=== PATIENT | female | born 1985 | race Caucasian/White ===

== ENCOUNTER 2024-12-26 15:11 | Outpatient (AMB) | payer OTHER, SELFPAY ==
[2024-12-26 15:15] VITALS: BP 132/82; PULSE 95; O2SAT 96; BMI 41.5
--- NOTE | 2024-12-26 15:15 | HO.NEPHOV_ITS ---
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 She was diagnosed with hypertension about a year ago. She was initially on amlodipine 5 mg. For the past 2 months dose has been increased to 10 mg. Systolic blood pressure is still in the mid 130s. She has been referred for further evaluation of hypertension. She has gained about 50 lb in the last 2 years. She was worked up for seizure-like activity. She was later discharged by Neurology. She recently lost her sister and has a stressful situation. She works in the stressful job as well She has had 2 pregnancies without any -induced hypertension [facility] Medical History (Updated 12/26/24 @ 15:59 by Chucho Brantley MD) Adult BMI 40.0-44.9 kg/sq m Cervical adenopathy CRP elevated ETD (eustachian tube dysfunction) Hypertension Severe obesity Family History (Updated 12/26/24 @ 15:17 by MATEUSZ Benítez) Father Hypertension Mother Hypertension Review of Systems Const Denies fever(s) and Denies weight loss Card Denies chest pain Resp Denies cough and Denies hemoptysis GI Denies abdominal pain, Denies diarrhea and Denies nausea Musc Denies back pain Neuro Denies focal weakness Physical Exam Vital Signs: Last Vital Signs Pulse 95 12/26/24 15:15 BP 132/82 12/26/24 15:15 Pulse Ox 96 12/26/24 15:15 Oxygen Delivery Method Room Air 12/26/24 15:15 BMI result Body Mass Index 41.5 Const General: comfortable; No acute distress Orientation/consciousness: patient oriented x3 Eyes General: appearance normal, both eyes and all related structures Visual Velasco: normal visual velasco by confrontation Neck Neck: Yes supple and Yes no JVD Resp Effort & Inspection: normal respiratory effort and respiratory effort not decreased Cardio Palpation: no palpable S3 and no palpable S4 Heart sounds: no rubs GI Inspection: Yes normal to inspection Palpation (GI): Soft to palpation Percussion: Yes normal to percussion Auscultation: normal bowel sounds General: Yes no CVA tenderness Back/Spine/Pelvis Back: no CVA tenderness Skin General skin exam: no petechiae and no purpura Neuro General: patient oriented x3 and no focal motor deficits Extrem General: No clubbing and No edema Results Reviewed Nephrology Results: Hgb 11.8 g/dL (12.0-16.0) L 08/30/19 WBC 7.6 X10*3/uL (4.8-10.8) 08/30/19 Plt Count 269 X10*3/uL (160-400) 08/30/19 Sodium 137 MMOL/L (135-145) 08/08/19 Potassium 4.3 MMOL/L (3.3-5.1) 08/08/19 Chloride 104 MMOL/L (96-108) 08/08/19 BUN 6 MG/DL (9-16) L 08/08/19 Creatinine 0.77 MG/DL (0.5-1.4) 08/08/19 Urine Protein NEG (NEG - TRACE) 08/08/19 Assessment & Plan Assessment & Plan (1) Hypertension: Code(s): I10 - Essential (primary) hypertension Category: Medical Plan Young woman with hypertension in the setting of increased BMI. She has secondary hypertension most likely due to underlying obesity. Renal artery stenosis seems unlikely. Based on recent lab work I do not believe she has any evidence of hyperaldosteronism. I suspect she has underlying obstructive sleep apnea due to obesity. We had a lengthy discussion regarding lifestyle modifications including weight loss. Discussed importance of cutting back on carbohydrates and track calorie intake. The goal would be to lose 0.5-1 lb a week In the meantime I have taken liberty of adding spironolactone 12.5 mg 1 a day in addition to amlodipine. Limit sodium intake. Continue with the exercise activities Hopefully with the weight loss we should be able to taper down antihypertensive medications She will returned for follow up in the next 4 weeks Medications: New spironolactone 12.5 mg (1/2 x 25 mg) PO DAILY 30 tabs 1RF Coding Level of Care Code New Pt Level 4 (04201) Diagnoses Hypertension I10
--- OUTSIDE RECORDS SUMMARY | 2024-12-26 15:44 | XMS_ITS | Data Portability ---
Author Organization [place] - [facility], Allergy Address [address] [place] [phone] Care Team Providers Care Button Maker And Installer Name Role Phone STEPHANIE العلي Primary Care Provider Assessment Encounter Date Assessment Date Assessment LastModified by Organization Details LastModified Time 05/16/2024 05/16/2024 38 year old maurice chin presents for evaluation of hearing loss and ear pressure. On exam, bilateral TMs are intact with well aerated middle ear spaces. Patient was slightly symptomatic on [place] bilaterally, but no nystagmus was noted. Audiometric testing demonstrated normal hearing bilaterally. The patient's history, physical exam and audiometric findings are most consistent with migraine associated dizziness. Today we discussed the pathophysiology of migraine and migraine associated dizziness, and discussed how the patient's balance disturbance symptoms are likely mediated by a central processing abnormality rather than an inner ear abnormality. I gave the patient literature to review at home regarding how there are many environmental and dietary triggers that can lead to not only migraine headaches but dizzy spells as well. We discussed the importance of following a migraine diet. I recommended the patient read the book, Heal Your Headache, which gives a [id number] discussion on what causes migraine and how to make the necessary lifestyle and dietary changes to significantly reduce or eliminate migraine symptoms. I have also recommended the use of dietary supplement Migranol, which contains a combination of magnesium, vitamin B2, and feverfew which have been shown to help control migrainous phenomena. Will defer imaging to her neurologist. She may follow up as needed for any future concerns. May consider vestibular therapy if vertigo persists or worsens. Patient agrees with the plan and all questions were answered. [email or web address] Not available 05/16/2024 11:01:29 Plan of Treatment Reminders Order Date Submit Date Provider Last Modified By Organization Details Last Modified Time Details Appointments None record ed. Lab None record ed. Referral None record ed. Procedures None record ed. Surgeries None record ed. Imaging None record ed. Medication Orders None record ed. Patient TargetsNo targets recorded. Patient InstructionsNo instructions recorded. Reason for Referral None Reported. Results Created Date Observation Date Name Description Value Unit Range Abnormal Flag Note LastModifiedBy Organization Detail LastModifiedTime 05/17/20 24 audio gram No observ ation record ed. [email or web address] Not Available 2023 16:39:06 Result Notes None recorded. Problems Name Problem SNOMED Code Status Onset Date Resolution Date Notes Provider Name and Address Organization Details Recorded Time Abnormal auditory perception 62636774 Active 024 Edwige hernandez MA [facility] 4 10:16:57 Migraine without aura 48319910 Active 024 ARTEMIO THOMAS PA-C [address] [place] [address], [place], [phone], [facility] 4 11:01:41 Dizziness and giddiness 683404814 Active 024 ARTEMIO THOMAS PA-C [address] [place] [address], [place], [phone], [facility] - [facility] 4 11:01:44 Problem Notes None recorded. Procedures Surgical History Date Name Laterality Status Provider Name and Address Organization Details Recorded Time 05/16/2024 Air & Speech Audio with Tymps - 48904, 12438 & 88853 completed Edwige Weston [place] - [facility] 05/16/2024 10:16:41 Imaging Results Imaging Date Name Status LastModified by Organiz ation Details LastModified Time 05/17/2024 audiogram completed [email or web address] Information no t available 05/17/2024 16:39:06 Procedure Notes None recorded. Medical Equipment None Reported. Medications Name Sig Start Date Stop Date Status Note LastModified by Organization Details LastModified Time Apri 0.15 mg-0.03 mg tablet active Not Available Not Available Not Available topiramate 25 mg tablet 09/26/ 2024 completed Not Available Not Available Not Available amlodipine 5 mg tablet active Not Available Not Available No t Available lamotrigine 25 mg tablet 2023 completed Not Available Not Available Not Available amoxicillin 875 mg-potassium clavulanate 125 mg tablet 2023 completed Not Available Not Available Not Available Vitals Date Recorded Body weight Body mass index (BMI) Body height Provider Name and Address Organization Details Last Updated DateTime 05/16/2024 599872.86 g 41.3 kg/m2 175.26 cm Hattie Hurt [place] - [facility] 05/16/2024 10:25:56 Social History None recorded. Functional Status None recorded. Mental Status None recorded. Family History Nothing Reported. Medical History No medical history recorded. Gynecological HistoryNo gynecological history recorded. Obstetrics History GPAL:G 0 P 0 0 0 0 Past Encounters Encounter ID Performer Location Encounter Start Date Encounter Closed Date Diagnosis/Indication Diagnosis SNOMED-CT Code Diagnosis ICD10 Code Diagnosis Note [id number] ARTEMIO THOMAS PA-C [facility] [address] [phone] 05/16/2024 09:39:17 05/16/2024 10:50:16 Abnormal auditory perception 90452676 H93.292 Audiologic al evaluation results: Right ear: {{Normal* Normal through 2 kHz Mild M oderate Mo derately-s evere Jessica re Profoun d}} {{hearing* sloping to a mild slopi ng to a moderate s loping to moderately severe slo ping to severe slo ping to profound f lat high frequency low frequency mid frequency cookie bite sahu curve}} {{with* se nsorineura l hearing loss with condu ctive hearing loss with mixed hearing loss with}} {{excellen t* good fa ir poor no measurable }} word recognitio n. Left ear: {{Normal* Normal through 2 kHz Mild M oderate Mo derately-s evere Jessica re Profoun d}} {{hearing* sloping to a mild slopi ng to a moderate s loping to moderately severe slo ping to severe slo ping to profound f lat high frequency low frequency mid frequency cookie bite sahu curve}} {{with* se nsorineura l hearing loss with condu ctive hearing loss with mixed hearing loss with}} {{excellen t* good fa ir poor no measurable }} word recognitio n. Tympanomet ry: Right Ear:{{Type A* Type As Type Ad Type C Type C, shallow & rounded Ty pe B Type B with large volume Cou ld not maintain a hermetic seal}} Left Ear:{{Type A* Type As Type Ad Type C Type C, shallow & rounded Ty pe B Type B with large volume Cou ld not maintain a hermetic seal}} Migraine without aura 56 152889 G43.009 Dizziness and giddiness 318491090 R42 Health Concerns Section Related Observation LastModified by Organization Detai ls LastModified Time None Recorded Concern Status LastModified by Organization Details LastModified Time None Recorded Advance Directives Directive None Recorded Payers Insurance Date Sequence Insurance Name Policy Number Policy Grayson Covered Member ID Grayson Member ID Guarantor Name 05/16/2024 1 [facility] [email or web address] - DIRECT - [place] (HMO) [id number] Deedee Hernandez [id number] 1 Deedee Hernandez Notes Date Note Type Note Provider Name and Address Organization Details Recorded Time 05/16/2024 text/html 38-year-old maurice chin presents for evaluation of ear pressure and hearing loss. Back in August, she reports feeling a zap on the right side of her brain. She also noted episodes of room spinning dizziness and feeling off associated with left-sided ear pressure, tinnitus, and hearing loss that would last a few minutes. Symptoms have significantly improved. Occasionally, she has headaches and facial flushing. Also notes light and sound sensitivity. She was also started on antihypertensive medications around that time. She saw a neurologist who had concern about possible seizure and migraine. She is seeking a second opinion with another neurologist. She reports having a CT and MRI and reports that these were negative. Denies history of allergic rhinitis. History of migraines when she was younger. ARTEMIO THOMAS PA-C [address] [place] [address], [phone], [facility] - [facility] 05/16/2024 11:04:35 OBGyn Episode No OBEpisode recorded.
--- OUTSIDE RECORDS SUMMARY | 2024-12-26 15:44 | XMS_ITS | Clinical Summary ---
Author Organization [facility] Address [address] [place] [address] Care Team Providers Care Skin Care Instructor Name Role Phone Unavailable Primary Care Provider Unavailabl e Social History Tobacco Use Types Packs/Day Years Used Date Smoking Tobacco: Never Assessed Sex and Gender Information Value Date Recorded Sex Assigned at Not on file Gender Identity Not on file Sexual Orientation Not on file Plan of Treatment Not on file
--- OUTSIDE RECORDS SUMMARY | 2024-12-26 15:44 | XMS_ITS | Encounter Summary ---
Author Organization [facility] Address [address] [place] [address] Care Team Providers Care Staff Auditor Name Role Phone Unavailable Primary Care Provider Unavailabl e Reason for Referral * ENT (Routine) - Pending Review Specialty Diagnoses / Procedures Referred By Contac t Referred To Contact Otolaryngology Diagnoses Adenopathy Scooby Fields MD [address] [place] [address] Phone: tel: fax: [facility] [address] [address] Phone: tel: fax: Referral ID Status Reason Start Date Expiration Date Visits Requested Visits Authorized [id number] Pending Review Consult 12/19/2024 12/20/2025 1 1 Encounter Details Date Type Department Care Team (Late st Contact Info) Description 12/19/2024 Transcribe Orders [facility] Scooby Fields MD [address] [place] [address] Adenopathy (Primary Dx) Social History Tobacco Use Types Packs/Day Years Used Date Smoking Tobacco: Never Assessed Comments Unknown Sex and Gender Information Value Date Recorded Sex Assigned at Not on file Legal Sex Female 11:22 AM EDT Gender Identity Not on file Sexual Orientation Not on file documented as of this encounter Plan of Treatment Scheduled Referrals Name Type Priority Associated Diagnoses Order Schedule Ambulatory referral to ENT Outpatient Referral Routine Adenopathy Ordered: 12/19/2024 documented as of this encounter Visit Diagnoses Diagnosis Adenopathy- Primary Enlargement of lymph nodes documented in this encounter
--- OUTSIDE RECORDS SUMMARY | 2024-12-26 15:44 | XMS_ITS | Clinical Summary ---
Author Organization [facility] Address [address] [place] [address] Care Team Providers Care Service Rig Operator Name Role Phone Unavailable Primary Care Provider Unavailabl e Encounters Date Type Department Care Team Description 12/19/2024 Transcribe Orders [facility] Scooby Fields MD Adenopathy (Primary Dx) from Last 3 Months Social History Tobacco Use Types Packs/Day Years Used Date Smoking Tobacco: Never Assessed Comments Unknown Sex and Gender Information Value Date Recorded Sex Assigned at Not on file Legal Sex Female 11:22 AM EDT Gender Identity Not on file Sexual Orientation Not on file Plan of Treatment Health Maintenance Due Date Last Done Comments Hepatitis C Virus Screening 1987 HIV Screening 2000 DTaP/Tdap/Td Vaccines (1 - Tdap) 2006 Hepatitis B Vaccines (1 of 3 - 19+ 3-dose series) 2006 COVID-19 Vaccine (2023-2 5 season) 2024 HPV Vaccines Aged Out No longer eligi ble based on patient's age to complete this topic Pneumococcal Vaccine: Pediat alecia (0-5 Years) and At-Risk Patients (6 to 49 Years) Aged Out No longer eligible b ased on patient's age to complete this topic
--- OUTSIDE RECORDS SUMMARY | 2024-12-26 15:44 | XMS_ITS | Clinical Summary ---
Author Organization [facility] ity Address [address] [place] [address] Care Team Providers Care Television Repairman Name Role Phone Unavailable Primary Care Provider Unavailabl e Social History Tobacco Use Types Packs/Day Years Used Date Smoking Tobacco: Never Assessed Comments Unknown Sex and Gender Information Value Date Recorded Sex Assigned at Not on file Legal Sex Female 4:02 PM EST Gender Identity Not on file Sexual Orientation Not on file Plan of Treatment Health Maintenance Due Date Last Done Comments DTaP,Tdap,and Td Vaccines (1 - Tdap) 2006 Hepatitis B Vaccines (1 of 3 - 19+ 3-dose series) 2006 Cervical Cancer Screening: P ap Smear 2008 Depression Screening 07/20/2022 HIV Screening 07/20/2022 Hepatitis C Screening 07/20/2022 Social Influencers of Health Screening 07/20/2022 COVID-19 Vaccine (2023-2 5 season) 2024 Influenza Vaccine (Season Ended) 2025 HIB Vaccines Aged Out No longer eligi ble based on patient's age to complete this topic HPV Vaccines Aged Out No longer eligi ble based on patient's age to complete this topic Hepatitis A Vaccines Aged Out No long er eligible based on patient's age to complete this topic IPV Vaccines Aged Out No longer eligi ble based on patient's age to complete this topic MMR Vaccines Aged Out No longer eligi ble based on patient's age to complete this topic Meningococcal ACWY Vaccine Aged Out N o longer eligible based on patient's age to complete this topic Meningococcal B Vaccine Aged Out No l onger eligible based on patient's age to complete this topic Pneumococcal Vaccine: Pediat rics (0 to 5 Years) and At-Risk Patients (6 to 64 Years) Aged Out No longer eligible b ased on patient's age to complete this topic RSV Immunization Patients Un sharon 20 months Aged Out No longer eligible b ased on patient's age to complete this topic Varicella Vaccines Aged Out No longer eligible based on patient's age to complete this topic
== END 2024-12-26 15:42 | disposition home or self-care (01) ==
LOC: HO.HKA 15:12
PROVIDERS: PCP Family Medicine; Visit Provider Internal Medicine Hypertension Specialist
DX: I10 Essential (primary) hypertension (principal)
CPT/HCPCS: 99204

== ENCOUNTER → 2024-12-26 15:11 | Outpatient (BNVA) | payer OTHER, SELFPAY | PROVIDERS: PCP Family Medicine; Visit Provider Internal Medicine Hypertension Specialist ==

== ENCOUNTER 2025-02-09 19:22 | Emergency (ER) | payer OTHER, SELFPAY ==
--- NOTE | ~2025-02-09 | US_ITS ---
CLINICAL HISTORY: RUQ pain. gallstones US abdomen limited Comparison: None provided Findings: The gallbladder is contracted. No cholelithiasis or gallbladder sludge. Gallbladder wall measures 2 mm. Common bile duct measures 3 mm. Negative sonographic Vanegas's sign. No free fluid. IMPRESSION: Contracted gallbladder which is otherwise unremarkable. Common bile duct within normal limits. This document has been electronically signed by: Mona Neal MD on 02/09/2025 22:49:00
[2025-02-09 20:06] VITALS: BP 149/87; PULSE 92; RESP 18; TEMP 36.9; O2SAT 97; BMI 40.6
--- NOTE | 2025-02-09 20:10 | ED.GENADULT ---
HPI - General Adult General Chief complaint: Abdominal Pain Stated complaint: rt side pain goes to lower abd pain Time Seen by Provider: 02/09/25 21:52 Source: patient Mode of arrival: ambulatory Limitations: no limitations History of Present Illness ED Provider: HPI narrative: Patient no significant past medical history except for hypertension noticed pain in the right upper abdomen for last 1 week off and on especially when she moving her bowels got better 2 days ago again to 2 hours prior to arrival patient noticed the pain no relation of the pain with the food no nausea no vomiting no no history of gallstones no urinary complaints no history of kidney stone no fever no chills Related Data Home Medications ?Medication ?Instructions ?Recorded ?Confirmed amlodipine 5 mg tablet 10 mg PO DAILY 12/26/24 12/26/24 betamethasone dipropionate 0.05 % 1 appl topical BID PRN 12/26/24 12/26/24 topical cream Previous Rx's ?Medication ?Instructions ?Recorded spironolactone 25 mg tablet 12.5 mg (1/2 x 25 mg) PO DAILY #30 12/26/24 tabs Allergies Allergy/AdvReac Type Severity Reaction Status Date / Time No Known Allergies (No Known Allergy Verified 02/09/25 20:09 Allergies*) Review of Systems Review of Systems: Yes all other systems are reviewed and are negative PMFSH Past Medical History Medical History Adult BMI 40.0-44.9 kg/sq m Cervical adenopathy CRP elevated ETD (eustachian tube dysfunction) Hypertension Severe obesity Family History Family History Father Hypertension Mother Hypertension Physical Exam ED Vital Signs: Vital Signs - 24 hr 02/09/25 20:06 02/09/25 23:34 02/09/25 23:45 Temperature 98.4 F 97.5 F 97.5 F Pulse Rate 92 80 80 Respiratory Rate 18 15 15 Blood Pressure 149/87 H 126/65 126/65 Pulse Oximetry 97 96 96 Oxygen Delivery Method Room Air Room Air Room Air BMI result Body Mass Index 40.6 Appearance: Alert. Oriented X3. No acute distress. Eyes: PERRLA, No Nystagmus ENT: Pharynx normal. Oral Mucosa moist Neck: Normal inspection. Neck supple. CVS: Normal heart rate and rhythm. Pulses normal. Respiratory: No respiratory distress. Equal air entry bilateral, no wheezing/rales/rhonchi Abdomen: Soft and deep tenderness in right upper quadrant no rebound tenderness or guarding. Bowel sounds are present, no mass palpable, no CVA tenderness Skin: Skin warm and dry. Normal skin color. Normal skin turgor. Extremities: No lower extremity edema. No calf tenderness Neuro: Oriented X 3. No motor deficit. No sensory deficit.No cerebellar signs , cranial nerves II-XII intact Course Course Course Narrative: RAQUEL: 39 year female presents to ED for right upper quadrant pain radiating to right lower quadrant pain with some flank pain. Patient denies any chest pain shortness of breath. Positive for right-sided abdominal tenderness. We will do labs UA. Medical Decision Making Lab Data 02/09/25 20:28 02/09/25 20:28 Labs: Lab Results 02/09/25 02/09/25 Range/Units 20:24 20:28 WBC 9.6 (4.8-10.8) X10*3/uL RBC 3.85 L (4.20-5.50) X10*6/uL Hgb 10.3 L (12.0-16.0) g/dl Hct 31.9 L (37.0-47.0) % MCV 82.9 (80.0-98.0) fL MCH 26.8 L (27.0-33.0) pg MCHC 32.3 (31.0-35.0) g/dl RDW 13.9 (11.0-16.0) % Plt Count 298 (160-400) X10*3/uL MPV 9.3 L (9.4-12.3) fL Immature Gran % (Auto) 0.4 (0.0-0.4) % Neut % (Auto) 69.2 (45-73) % Lymph % (Auto) 22.4 (20-40) % [place] % (Auto) 5.4 (2-11) % Eos % (Auto) 1.8 (0-4) % Baso % (Auto) 0.8 (0-2) % Lymph # (Auto) 2.2 (1.2-4.9) X10*3/uL [place] # (Auto) 0.5 (0.1-1.2) X10*3/uL Eos # (Auto) 0.2 (0.0-0.4) X10*3/uL Baso # (Auto) 0.1 (0.0-0.2) X10*3/uL Abs Immat Gran (auto) 0.04 H (0.00-0.03) X10*3/uL Absolute Neuts (auto) 6.7 (2.0-8.3) x10*3/uL Absolute Nucleated RBC 0.000 (0.0-0.012) X10*3/uL Nucleated RBC % (auto) 0.0 (0.0-0.2) /100WBC Sodium 140 (135-145) mmol/L Potassium 4.1 (3.3-5.1) mmol/L Chloride 108 (96-108) mmol/L Carbon Dioxide 25 (22-29) mmol/L Anion Gap 11 L (12-20) BUN 13 (9-16) mg/dL Creatinine 0.93 (0.5-1.4) mg/dL Estim Creat Clear Calc 117.1 Estimated GFR > 60 Random Glucose 79 (60-115) mg/dL Calcium 8.8 (8.4-10.2) mg/dL Total Bilirubin 0.3 (0.0-1.0) mg/dL AST 26 (5-31) U/L ALT 32 H (0-31) U/L Alkaline Phosphatase 66 (39-117) U/L Total Protein 7.0 (6.5-8.0) g/dL Albumin 4.3 (3.5-5.0) g/dL Lipase 14 (8-78) U/L Beta HCG, Quant < 2 mIU/mL Urine Color Yellow Urine Appearance Clear Urine pH 5.5 (5.0-9.0) Ur Specific [place] 1.020 (1.005-1.025) Urine Protein Negative (Neg-Trace) mg/dL Urine Glucose (UA) Negative (Negative) mg/dL Urine Ketones Negative (Negative) mg/dL Urine Blood Negative (Negative) Urine Nitrite Negative (Negative) Ur Leukocyte Esterase Negative (Negative) Urine Test NEGATIVE (NEGATIVE) Discharge Plan Discharge Clinical Impression: Abdominal pain Patient Disposition: Home, Self-Care Instructions: Abdominal Pain (ED) Additional Instructions: Your nonspecific abdominal pain likely from the bowel movement/muscular pain Drink plenty of fluids Your ultrasound is negative for gallstones Follow up with your PCP if not better Prescriptions: No Action amlodipine 5 mg tablet 10 mg PO DAILY betamethasone dipropionate 0.05 % cream 1 appl topical BID PRN spironolactone 25 mg tablet 12.5 mg PO DAILY Qty: 30 1RF Interventions: ED Discharge Assessment Last Done: 02/09/25 23:45 Discharge Date/Time: 02/10/25 00:05 Print Language: Norwegian
--- OUTSIDE RECORDS SUMMARY | 2025-02-09 20:27 | XMS_ITS | Data Portability ---
Author Organization [place] [facility], Allergy Address [address] [place] [phone] Care Team Providers Care Furnace Erector Name Role Phone STEPHANIE العلي Primary Care Provider [phone] Assessment Encounter Date Assessment Date Assessment LastModified by Organization Details LastModified Time 05/16/2024 05/16/2024 38 year old maurice chin presents for evaluation of hearing loss and ear pressure. On exam, bilateral TMs are intact with well aerated middle ear spaces. Patient was slightly symptomatic on Garrison-Hallpike bilaterally, but no nystagmus was noted. Audiometric [...] book, Heal Your Headache, which gives a fjot-di-aqkm discussion on what causes migraine and how [...] the plan and all questions were answered. [email or web address] Not available 05/16/2024 11:01:29 Plan of Treatment [...] Organization Details Recorded Time Abnormal auditory perception 61714024 Active 024 Edwige hernandez MA [facility] 4 10:16:57 Migraine without aura 88761444 Active 024 ARTEMIO THOMAS PA-C [address] [place] [address], [place], [address], [facility] 4 11:01:41 Dizziness and giddiness 823974696 Active 024 ARTEMIO THOMAS PA-C [address] [place] [address], [place], [address], [facility] 4 11:01:44 Problem Notes None recorded. Procedures Surgical History Date Name Laterality Status Provider Name and Address Organization Details Recorded Time 05/16/2024 Air & Speech Audio with Tymps - 47633, 24192 & 38347 completed Edwige Weston [place] - [facility] 05/16/2024 10:16:41 Imaging Results None recorded. Procedure Notes None recorded. Medical Equipment None Reported. Medications Name Sig Start Date Stop Date Status Note LastModified by Organization Details LastModified Time Apri 0.15 mg-0.03 mg tablet active Not Available Not Available Not Available topiramate 25 mg tablet 2023 completed Not Available [...] Address Organization Details Last Updated DateTime 05/16/2024 069373.86 g 41.3 kg/m2 175.26 cm Hattie Hurt [facility] [...] SNOMED-CT Code Diagnosis ICD10 Code Diagnosis Note [id number] ARTEMIO THOMAS PA-C [facility] [address] [address] 05/16/2024 09:39:17 05/16/2024 10:50:16 Abnormal auditory perception 78233803 H93.292 Audiologic al evaluation results: Right ear: Normal hearing with excellent word recognitio n. Left ear: Normal hearing with excellent word recognitio n. Tympanomet ry: Right Ear:Type A Left Ear:Type A Migraine without aura 56 869262 G43.009 Dizziness and giddiness 902700732 R42 Health Concerns Section Related Observation LastModified by Organization Detai ls LastModified Time None Recorded Concern Status LastModified by Organization Details LastModified Time None Recorded Advance Directives Directive None Recorded Payers Insurance Date Sequence Insurance Name Policy Number Policy Grayson Covered Member ID Grayson Member ID Guarantor Name 05/16/2024 1 [facility] [employer] - DIRECT - [place] (HMO) [id number] Deedee Hernandez [id number] 1 Deedee Hernandez Notes Date Note Type Note Provider Name and Address Organization Details Recorded Time 05/16/2024 text/html 38-year-old femrogelio chin presents for evaluation of ear pressure [...] when she was younger. ARTEMIO THOMAS PA-C [address] [place] [address], [phone], [facility] - [facility] 05/16/2024 11:04:35 OBGyn Episode No OBEpisode recorded.
[2025-02-09 20:34] LABS: MANUAL DIFF FLAG NO
[2025-02-09 20:36] LABS: Appearance Urine Clear; Color Urine Yellow; Glucose Urine UA Negative (Negative); Leukocyte Esterase Urine Negative (Negative); Nitrite Urine Negative (Negative); PH 5.5 (5.0-9.0); Urine Blood Negative (Negative); Urine Ketones Negative (Negative); Urine Protein Negative (Neg-Trace)
[2025-02-09 20:37] LABS: UPreg QC Valid YES; Urine Pregnancy NEGATIVE (NEGATIVE)
[2025-02-09 20:38] LABS: Basophils Absolute Auto 0.1 X10*3/uL (0.0-0.2); Basophils Percent Auto 0.8 % (0-2); Eosinophils Absolute Auto 0.2 X10*3/uL (0.0-0.4); Eosinophils Percent Auto 1.8 % (0-4); Hematocrit 31.9 % (37.0-47.0); Hemoglobin 10.3 g/dl (12.0-16.0); Imm Gran Abs Auto 0.04 X10*3/uL (0.00-0.03); Imm Gran Pct Auto 0.4 % (0.0-0.4); Lymphocytes Absolute Auto 2.2 X10*3/uL (1.2-4.9); Lymphocytes Percent Auto 22.4 % (20-40); Mean Corpuscular HGB Conc 32.3 g/dl (31.0-35.0); Mean Corpuscular Hemoglobin 26.8 pg (27.0-33.0); Mean Corpuscular Volume 82.9 fL (80.0-98.0); Mean Platelet Volume 9.3 fL (9.4-12.3); Monocytes Absolute Auto 0.5 X10*3/uL (0.1-1.2); Monocytes Percent Auto 5.4 % (2-11); Neutrophils Absolute Auto 6.7 x10*3/uL (2.0-8.3); Neutrophils Percent Auto 69.2 % (45-73); Platelet Count 298 X10*3/uL (160-400); Red Blood Count 3.85 X10*6/uL (4.20-5.50); Red Cell Distribution Width 13.9 % (11.0-16.0); White Blood Count 9.6 X10*3/uL (4.8-10.8)
[2025-02-09 20:58] LABS: Alanine Aminotransferase 32 U/L (0-31); Albumin Level 4.3 g/dL (3.5-5.0); Alkaline Phosphatase 66 U/L (39-117); Anion Gap 11 (12-20); Aspartate Amino Transferase 26 U/L (5-31); Bilirubin Total 0.3 mg/dL (0.0-1.0); Blood Urea Nitrogen 13 mg/dL (9-16); Calcium 8.8 mg/dL (8.4-10.2); Carbon Dioxide 25 mmol/L (22-29); Chloride 108 mmol/L (96-108); Creatinine Clr Calc Pharmacy 117.1; Estimated Glomerular Filt Rate > 60; Glucose Random 79 mg/dL (60-115); Lipase 14 U/L (8-78); Potassium 4.1 mmol/L (3.3-5.1); Sodium 140 mmol/L (135-145)
[2025-02-09 20:59] LABS: HCG Quantitative < 2 mIU/mL
[2025-02-09 23:34] VITALS: BP 126/65; PULSE 80; RESP 15; TEMP 36.4; O2SAT 96
[2025-02-09 23:45] VITALS: BP 126/65; PULSE 80; RESP 15; TEMP 36.4; O2SAT 96
== END 2025-02-10 00:05 | disposition home or self-care (01) ==
PROVIDERS: Physician Assistant; Emergency Provider Internal Medicine; PCP Nurse Practitioner
DX: R10.2 Pelvic and perineal pain (principal); R10.11 Right upper quadrant pain; R10.31 Right lower quadrant pain; Z79.899 Other long term (current) drug therapy
CPT/HCPCS: 36415; 76705; 80053; 81003; 81025; 83690; 84702; 85025; 99284

== ENCOUNTER → 2025-02-09 21:18 | Outpatient (BNV) | payer OTHER, SELFPAY | PROVIDERS: Emergency Provider Internal Medicine; PCP Nurse Practitioner; Visit Provider Specialist | DX: R10.11 Right upper quadrant pain (principal); K80.20 Calculus of gallbladder without cholecystitis without obstruction | CPT/HCPCS: 76705 ==

== ENCOUNTER 2025-02-17 15:40 | Outpatient (AMB) | payer OTHER, SELFPAY ==
[2025-02-17 15:41] VITALS: BP 124/84; PULSE 76; O2SAT 98; BMI 42.1
--- NOTE | 2025-02-17 15:41 | HO.NEPHOV_ITS ---
Vital Signs 02/17/25 15:41 Height 5 ft 9 in Weight 285 lb BMI 42.1 BP 124/84 Blood Pressure Location Lt brachial Position Sitting Pulse 76 Pulse Source Pulse Oximeter Pulse Oximetry (%) 98 Oxygen Delivery Method Room Air Intake Visit Reasons: 1 MO FU/ Unable to reach Mortgage Loan Originator Required: No Accompanied by: Self / Same As Patient Allergies No Known Allergies (No Known Allergies*) Allergy (Verified 02/17/25 15:43) Medication List - Last Reconciled 02/17/25 by Chucho Brantley MD amlodipine 10 mg PO DAILY betamethasone dipropionate 0.05% 1 appl topical BID PRN spironolactone 12.5 mg (1/2 x 25 mg) PO DAILY HPI Comments Details: Deedee is a pleasant 39-year-old woman with a history of hypertension. She was diagnosed with hypertension about a year ago. She was initially on amlodipine 5 mg. For the past 2 months dose has been increased to 10 mg. Systolic blood pressure is still in the mid 130s. She has been referred for further evaluation of hypertension. She has gained about 50 lb in the last 2 years. She was worked up for seizure-like activity. She was later discharged by Neurology. She recently lost her sister and has a stressful situation. She works in the stressful job as well She has had 2 pregnancies without any -induced hypertension 02/17/25 The patient is a 39-year-old female presenting with hypertension The patient's blood pressure has improved, currently measuring 125/84 mmHg, with no associated symptoms such as lightheadedness or dyspnea. She is currently taking half a tablet of spironolactone, which has been effective in managing her blood pressure. The patient experienced a sudden onset of severe abdominal pain, which prompted an emergency room visit. An ultrasound was performed, ruling out gallstones, and the pain resolved spontaneously after a few hours. The liver enzyme ALT was slightly elevated at 32 U/L, but this was not considered clinically significant as other liver enzymes were normal. The patient has a history of borderline anemia, with hemoglobin levels decreasing from 11.8 g/dL in 2019 to 10.3 g/dL during the recent ER visit. The anemia is likely due to heavy menstrual bleeding, which increased after discontinuing control a year ago. She has not been taking iron supplements but plans to start them as recommended. The patient reported a previous episode of elevated high-sensitivity C-reactive protein (CRP), which was re-tested and remained elevated without a clear cause. [facility] Medical History Adult BMI 40.0-44.9 kg/sq m Cervical adenopathy CRP elevated ETD (eustachian tube dysfunction) Hypertension Severe obesity Family History Father Hypertension Mother Hypertension Physical Exam Const General: comfortable; No acute distress Orientation/consciousness: patient oriented x3 Eyes General: appearance normal, both eyes and all related structures Visual Velasco: normal visual velasco by confrontation Neck Neck: Yes supple and Yes no JVD Resp Effort & Inspection: normal respiratory effort and respiratory effort not decreased Cardio Palpation: no palpable S3 and no palpable S4 Heart sounds: no rubs GI Inspection: Yes normal to inspection Palpation (GI): Soft to palpation Percussion: Yes normal to percussion Auscultation: normal bowel sounds General: Yes no CVA tenderness Back/Spine/Pelvis Back: no CVA tenderness Skin General skin exam: no petechiae and no purpura Neuro General: patient oriented x3 and no focal motor deficits Extrem General: No clubbing and No edema Results Reviewed Nephrology Results: Hgb, (12.0-16.0) 10.3 g/dl L 02/09/25 WBC, (4.8-10.8) 9.6 X10*3/uL 02/09/25 Plt Count, (160-400) 298 X10*3/uL 02/09/25 Sodium, (135-145) 140 mmol/L 02/09/25 Potassium, (3.3-5.1) 4.1 mmol/L 02/09/25 Chloride, (96-108) 108 mmol/L 02/09/25 Carbon Dioxide, (22-29) 25 mmol/L 02/09/25 BUN, (9-16) 13 mg/dL 02/09/25 Creatinine, (0.5-1.4) 0.93 mg/dL 02/09/25 Calcium, (8.4-10.2) 8.8 mg/dL 02/09/25 Urine Protein, (Neg-Trace) Negative mg/dL 02/09/25 Assessment & Plan Assessment & Plan (1) Hypertension: Code(s): I10 - Essential (primary) hypertension Category: Medical Plan Young woman with hypertension in the setting of increased BMI. She has secondary hypertension most likely due to underlying obesity. Renal artery stenosis seems unlikely. Based on recent lab work I do not believe she has any evidence of hyperaldosteronism. I suspect she has underlying obstructive sleep apnea due to obesity. We had a lengthy discussion regarding lifestyle modifications including weight loss. Discussed importance of cutting back on carbohydrates and track calorie intake. The goal would be to lose 0.5-1 lb a week In the meantime I have taken liberty of adding spironolactone 12.5 mg 1 a day in addition to amlodipine. Limit sodium intake. Continue with the exercise activities Hopefully with the weight loss we should be able to taper down antihypertensive medications She will returned for follow up in the next 4 weeks 02/17/25 BP well controlled Keep same meds low slat diet WEight loss Renal function stable K and tCO2 are normal Anemia Start Iron tabs Follow up with OBGYN for heavy periods Orders: Orders Complete Blood Count no Diff 6 Months I10 - Essential (primary) hypertension IRON PROFILE 6 Months I10 - Essential (primary) hypertension Ferritin 6 Months I10 - Essential (primary) hypertension Medications: New ferrous fumarate 324 mg PO DAILY 90 tabs 1RF Coding Level of Care Code Est Pt Level 4 (61434) Diagnoses Hypertension I10
--- OUTSIDE RECORDS SUMMARY | 2025-02-17 15:44 | XMS_ITS | Clinical Summary ---
Author Organization [facility] ity Address [address] [place] [address] Care Team Providers Care Side Stitcher Name Role Phone Unavailable Primary Care Provider [...]
--- OUTSIDE RECORDS SUMMARY | 2025-02-17 15:44 | XMS_ITS ---
Author Name [facility] Organization Unknown Problems Problem Status Onset Date Problem Type Date of Resoluti on Source Adenopathy active EncounterDiagnosisAct CCT Care Team Organization Name Specialty Phone Email Start Date End Da [facility] 12/19/2024
--- OUTSIDE RECORDS SUMMARY | 2025-02-17 15:44 | XMS_ITS | Data Portability ---
Author Organization [place] - [facility], Allergy Address [address] [place] [phone] Care Team Providers Care Collision Worker Name Role Phone العلي STEPHANIE Primary Care Provider Assessment Encounter Date Assessment Date Assessment LastModified by Organization Details LastModified Time 05/16/2024 05/16/2024 38 year old maurice chin presents for evaluation of hearing loss and ear pressure. On exam, bilateral TMs are intact with well aerated middle ear spaces. Patient was slightly symptomatic on Driss-Hallpike bilaterally, but no nystagmus was noted. Audiometric [...] book, Heal Your Headache, which gives a bbms-vv-rrit discussion on what causes migraine and how [...] the plan and all questions were answered. [email or web address] Not available 05/16/2024 11:01:29 Plan of Treatment [...] Organization Details Recorded Time Abnormal auditory perception 96535153 Active Edwige hernandez MA [facility] 10:16:57 Migraine without aura 35355488 Active ARTEMIO THOMAS PA-C [address] [place] [address], [place], [phone], [facility] 4 11:01:41 Dizziness and giddiness 873568594 Active ARTEMIO THOMAS PA-C [address] [place] [address], [place], [phone], [facility] 4 11:01:44 Problem Notes None recorded. Procedures Surgical History Date Name Laterality Status Provider Name and Address Organization Details Recorded Time 05/16/2024 Air & Speech Audio with Tymps - 14472, 85817 & 32128 completed Edwige Weston [place] - [facility] 05/16/2024 10:16:41 Imaging Results None recorded. [...] Address Organization Details Last Updated DateTime 05/16/2024 047998.86 g 41.3 kg/m2 175.26 cm Hattie Hurt [facility] 05/16/2024 10:25:56 Social History None recorded. Functional Status None recorded. Mental Status None recorded. Family History Nothing Reported. Medical History No medical history recorded. Gynecological HistoryNo gynecological history recorded. Obstetrics History GPAL:G 0 P 0 0 0 0 Past Encounters Encounter ID Performer Location Encounter Start Date Encounter Closed Date Diagnosis/Indication Diagnosis SNOMED-CT Code Diagnosis ICD10 Code Diagnosis Note [id number] ARTEMIO THOMAS PA-C [facility] [address] [address] 05/16/2024 09:39:17 05/16/2024 10:50:16 Abnormal auditory perception 38817296 H93.292 Audiologic al evaluation results: Right ear: Normal hearing with excellent word recognitio n. Left ear: Normal hearing with excellent word recognitio n. Tympanomet ry: Right Ear:Type A Left Ear:Type A Migraine without aura 56 320225 G43.009 Dizziness and giddiness 384307098 R42 Health Concerns Section Related Observation LastModified by Organization Detai ls LastModified Time None Recorded Concern Status LastModified by Organization Details LastModified Time None Recorded Advance Directives Directive None Recorded Payers Insurance Date Sequence Insurance Name Policy Number Policy Grayson Covered Member ID Grayson Member ID Guarantor Name 05/16/2024 1 [facility] PUBLIC PLANS [facility] - DIRECT - [place]ERO (HMO) [id number] Deedee Hernandez [id number] 1 Deedee Hernandez Notes Date Note Type [...] when she was younger. ARTEMIO THOMAS PA-C [address] [place] [address], [place], [phone], [facility] - [facility] 05/16/2024 11:04:35 OBGyn Episode No OBEpisode recorded.
--- OUTSIDE RECORDS SUMMARY | 2025-02-17 15:44 | XMS_ITS | Clinical Summary ---
Author Organization [facility] Address [address] [place] [address] Care Team Providers Care Packing Machine Operator Name Role Phone Unavailable Primary Care Provider Unavailabl e Social History Tobacco Use Types Packs/Day Years Used Date Smoking Tobacco: Never Assessed Sex and Gender Information Value Date Recorded Sex Assigned at Not on file Gender Identity Not on file Sexual Orientation Not on file Plan of Treatment Not on file
--- OUTSIDE RECORDS SUMMARY | 2025-02-17 15:44 | XMS_ITS | Clinical Summary ---
Author Organization [facility] Address [address] [place] [address] Care Team Providers Care Accounting Policy Consultant Name Role Phone Unavailable Primary Care Provider Unavailabl e Encounters Date Type Department Care Team Description 12/19/2024 Transcribe Orders [facility] Scooby Fields MD Adenopathy (Primary Dx) from Last 3 Months Social History Tobacco Use Types Packs/Day Years Used Date Smoking Tobacco: Never Assessed Comments Unknown Sex and Gender Information Value Date Recorded Sex Assigned at Not on file Legal Sex Female 11:22 AM EDT Gender Identity Not on file Sexual Orientation Not on file Plan of Treatment Upcoming Encounters Date Type Department Care Team (Late st Contact Info) Description 03/17/2025 9:15 AM EDT Clinical Support [facility] [address], [place] [address] Diego Ellis MD [address] [place] [address] Health Maintenance Due Date Last Done Comments Hepatitis C Virus Screening 1987 HIV Screening 2000 DTaP/Tdap/Td Vaccines (1 - Tdap) 2006 Hepatitis B Vaccines (1 of 3 - 19+ 3-dose series) 2006 Pap Smear (Ages 21-65) 2008 COVID-19 Vaccine ( - 2023-2 5 season) 2024 Influenza Vaccine 03/21/2025 HPV Vaccines Aged Out No longer eligi ble based on patient's age to complete this topic Pneumococcal Vaccine: Pediat alecia (0-5 Years) and At-Risk Patients (6 to 49 Years) Aged Out No longer eligible b ased on patient's age to complete this topic Insurance [address] [place] [id number]
== END 2025-02-17 15:56 | disposition home or self-care (01) ==
LOC: HO.HKA 15:40
PROVIDERS: PCP Family Medicine; Visit Provider Internal Medicine Hypertension Specialist
DX: I10 Essential (primary) hypertension (principal)
CPT/HCPCS: 99214